=== PATIENT | male | born 1960 | race Caucasian/White ===

== ENCOUNTER 2019-05-14 08:04 | Day surgery (SDC) | payer BC ==
[~2019-05-14 08:04] MED LIST: Lactated Ringers 1,000 ML IV SCH; Midazolam 1 MG/ML 2 ML SDV ONE; Propofol 200 MG/20 ML SDV ONE; Sodium Chloride 0.9% 10 ML Syringe FLUSH PRN
[2019-05-14] MEDS ORDERED: Ondansetron 4 MG/2 ML SDV IV ONE (09:04)
[2019-05-14] MEDS ORDERED: Midazolam 1 MG/ML 2 ML SDV IV ONE (09:04)
[2019-05-14] MEDS ORDERED: Propofol 200 MG/20 ML SDV IV ONE (09:04)
--- NOTE | 2019-05-14 10:51 | PCM.PRNOTE ---
- Free Text/Narrative Note: PROCEDURE PERFORMED: Colonoscopy with biopsy PRE-PROCEDURE DIAGNOSIS/INDICATION FOR PROCEDURE: +FIT, no hx of colonoscopy CONSENT: Informed consent was obtained prior to the procedure after discussion of the risks (including pain, bleeding, infection, perforation, missed polyps, inability to completely remove polyps necessitating repeat colonoscopy, adverse reaction to anesthesia, cardiovascular event), benefits and alternatives and expected outcomes. The patient expressed understanding and wished to proceed. Verbal consent given and consent form signed. PROCEDURAL PAUSE: Completed SEDATION: Per anesthesia DESCRIPTION OF PROCEDURE: Patient was placed in the left lateral decubitus position. After adequate sedation and anesthetic was administered, a rectal exam was performed revealing no abnormalities. A lubricated Olympus Video Colonoscope was inserted into the rectum and air insufflation was performed. The colonoscope was advanced through the rectum, sigmoid, descending, transverse, and ascending colon without difficulties. The cecum was reached and the ileocecal valve as well as the appendiceal orifice were identified and pictorially documented. After adequate visualization of the cecum, the scope was withdrawn, giving 360-degree views of the colonic mucosa and retroflexion was performed in the rectum with the following findings noted below. Due to poor tolerance of anesthesia and laryngospasm which occurred while withdrawing in the transverse colon, colonoscope was removed quickly and patient stabilized followed by repeat insertion to the level of the transverse colon followed by removal with adequate visualization. See anesthesia documentation for details. Ileocecal valve: Normal Cecum: Normal Ascending colon: Normal Hepatic flexure: Normal Transverse colon: Normal Splenic flexure: Normal Descending colon: At 70cm, <0.5cm polyp removed with cold forceps AND 1cm polyp removed with snare; At 60cm, mild mucosal abnormality biopsied with cold forceps Sigmoid colon: Piodd-zh-yqieds mouth diverticuli Rectum: 1cm polyp removed with snare AND <0.5cm polyp removed with cold forceps All polyps noted to ahve complete removal and subsequent hemostasis noted. The scope was straightened, air suction performed, and the scope withdrawn without complication. Preparation adequacy fair. IMPRESSION: Colonoscopy performed revealing: - Four polyps and one area of mucosal abnormality, pathology now pending - Sigmoid diverticulosis PLAN: Will see patient in the clinic in 1 week to review pathology results and recommendation for repeat colonoscopy. Encourage increased fiber diet and bowel regimen to ensure 1-2 soft bowel movements per day.
== END 2019-05-14 11:40 | disposition home or self-care (01) ==
LOC: KA.SDS 08:04
PROVIDERS: ATTEND Family Medicine
DX: K57.31 Diverticulosis of large intestine without perforation or abscess with bleeding (principal); D12.4 Benign neoplasm of descending colon; D12.8 Benign neoplasm of rectum; K62.1 Rectal polyp; K63.89 Other specified diseases of intestine; K21.9 Gastro-esophageal reflux disease without esophagitis; I10 Essential (primary) hypertension; E78.00 Pure hypercholesterolemia, unspecified; E66.9 Obesity, unspecified; D33.3 Benign neoplasm of cranial nerves; G47.33 Obstructive sleep apnea (adult) (pediatric); Z68.39 Body mass index [BMI] 39.0-39.9, adult; Z99.89 Dependence on other enabling machines and devices; Z79.899 Other long term (current) drug therapy
CPT/HCPCS: 45380; 45385; J2250; J2405; J2704; J7120

== ENCOUNTER 2024-06-26 09:36 | Day surgery (SDC) | payer MEDICARE ==
[~2024-06-26 09:36] MED LIST changes: -Lactated Ringers 1,000 ML IV SCH; -Midazolam 1 MG/ML 2 ML SDV ONE; -Propofol 200 MG/20 ML SDV ONE
[2024-06-26] MEDS: Lactated Ringers 1,000 ML IV SCH (10:00)
[2024-06-26] MEDS ORDERED: Propofol 200 MG/20 ML SDV ONE (10:04)
[2024-06-26] MEDS ORDERED: Midazolam 1 MG/ML 2 ML SDV ONE (10:04)
== END 2024-06-26 12:19 | disposition home or self-care (01) ==
LOC: KA.SDS 09:36
PROVIDERS: ATTEND Family Medicine
DX: Z12.11 Encounter for screening for malignant neoplasm of colon (principal); K62.1 Rectal polyp; K57.30 Diverticulosis of large intestine without perforation or abscess without bleeding; K64.8 Other hemorrhoids; Z85.038 Personal history of other malignant neoplasm of large intestine; I10 Essential (primary) hypertension; K21.9 Gastro-esophageal reflux disease without esophagitis; E78.00 Pure hypercholesterolemia, unspecified; E66.9 Obesity, unspecified
CPT/HCPCS: 00811; J2250; J2704; J3490; J7120